=== PATIENT | female | born 1935 | race Caucasian/White ===

== ENCOUNTER 2021-03-29 11:44 | Inpatient (IN) | payer OTHER ==
[~2021-03-29] VITALS: Ht 167.6 cm; Wt 59.1 kg
--- NOTE | ~2021-03-29 | EMS ---
[address] [address] EMS Patient Care Report Name: STEFAN MONTAÑO Room #: 352-P ADM IN M.R.#: [id number] Admission: 03/29/21 Attend Phys: Cas Perez MD Discharge: Date of : 36 Report #: [id number] THIS REPORT FOR: //name// Report Transmitted: 03/30/2021 11:20 EMS Care Summary [place], [place]/[facility] Incident [id number] @ 03/29/2021 10:54 Incident Location [address] Patient STEFAN MONTAÑO Female, 85 Years 1935 Patient Address [address] [place] [address] Patient History Chronic Obstructive Pulmonary Disease (COPD),Dementia,Pneumonia, Patient Allergies No known allergies, Patient Medications Lisinopril, Chief Complaint PNEUMONIA Disposition Transported No Lights/[place] Dispatch Reason Sick Person Transported To [facility] Narrative EMS ARRIVED ON SCENE AT THE ADDRESS ABOVE. EMS MADE PT CONTACT, PT WAS SITTING UPRIGHT, GCS 12 IN HER ROOM AT [facility]. PT HAD BEEN RECENTLY BEEN DIAGNOSED WITH PNEUMONIA AND HAD BEEN ON ANTIBOTICS FOR THE PAST 6 DAYS. SNF STAFF STATED THAT [address] [address] EMS Patient Care Report Name: STEFAN MONTAÑO Room #: 352-P [facility] IN [place]#: [id number] Admission: 03/29/21 Attend Phys: Cas Perez MD Discharge: Date of : 36 Report #: [id number] PT IS USUALLY GCS 14 DUE TO DEMENTIA BUT HAS BEEN GCS 12 FOR APPROX. 24 HOURS. PT IS USUALLY ON HOME 02 DUE TO COPD. PT WAS LIFTED OFF COUCH AND PLACED ON STRETCHER AND SECURED WITH SEATBELTS. VITALS SIGNS WERE MONTIORED THROUGHOUT TRANSPORT WITH NO DECLINE IN MENTAL OR PHYSICAL STATUS. TRANSFER OF CARE WAS GIVEN TO RN AT [facility]. Initial Vitals @11:17P: 85,R: 18,BP: 121/84,Pain: 0/10,GCS: 12,SpO2: 94,Revised Trauma: 11, @11:11P: 81,R: 18,BP: 80/58,Pain: 0/10,GCS: 12,Glucose: 137,SpO2: 93,Revised Trauma: 10, @11:24P: 67,BP: 117/74,Pain: 0/10,GCS: 12,SpO2: 98, @11:31P: 74,R: 18,BP: 115/72,Pain: 0/10,GCS: 12,SpO2: 96,Revised Trauma: 11, Assessments @11:06MENTAL:Confused,SKIN:HEENT:Head/Face: No Abnormalities,Neck/Airway: No Abnormalities,LUNG SOUNDS:General: No Abnormalities,ABDOMEN:General: No Abnormalities,PELVIS//GI:No Abnormalities,EXTREMITIES:Left Arm: No Abnormalities,Right Arm: No Abnormalities,Left Leg: No Abnormalities,Right Leg: No Abnormalities,PULSE:NEURO:No Abnormalities, Impression Altered Mental Status Procedures @11:06 ALS Assessment Response: UnchangedSucceeded @11:15 Oxygen FlowRate: 4 Device: Nasal Cannula (NC) Response: UnchangedSucceeded @11:29 IV Therapy - Normal Saline (.9% NaCl) 10cc (20 ga) Site: Forearm-Left Response: UnchangedSucceeded Timeline 10:53,Call Received 10:53,Dispatch Notified 10:54,Dispatched 10:55,En Route 11:03,On Scene 11:06,At Patient 11:06,ALS Assessment,Response: UnchangedSucceeded, 11:11,BP: 80/58 M,PULSE: 81,RR: 18 R,SPO2: 93 Ox,ETCO2: ,B,PAIN: 0,GCS: 12, 11:15,Oxygen FlowRate: 4 Device: Nasal Cannula (NC) Response: UnchangedSucceeded, 11:17,BP: 121/84 M,PULSE: 85,RR: 18 R,SPO2: 94 Ox,ETCO2: ,BG: ,PAIN: 0,GCS: 12, 11:24,BP: 117/74 M,PULSE: 67,RR: R,SPO2: 98 Ox,ETCO2: ,BG: ,PAIN: 0,GCS: 12, 11:25,Depart Scene [address] [address] EMS Patient Care Report Name: STEFAN MONTAÑO Room #: 352-P [facility] IN M.R.#: [id number] Admission: 03/29/21 Attend Phys: Cas Perez MD Discharge: Date of : 36 Report #: [id number] 11:29,IV Therapy - Normal Saline (.9% NaCl) 10cc 20 ga Site: Forearm-Left,Response: UnchangedSucceeded, 11:31,BP: 115/72 M,PULSE: 74,RR: 18 R,SPO2: 96 Ox,ETCO2: ,BG: ,PAIN: 0,GCS: 12, 11:38,At Destination 11:58,Call Closed Disclaimer v1.1 Copyright 2020 [employer] This EMS Care Summary contains data elements from the applicable legal record (which may be displayed differently). It is designed to provide pertinent information for the following purposes: continuity of care, clinical quality, and state data reporting. The complete legal record is available to ED staff and administrators of the receiving hospital in [employer] Patient Tracker. All data is provided "as is."
[2021-03-29 11:44] VITALS: BP 104/50
[~2021-03-29 11:44] MED LIST: ACETAMINOPHEN325 M1 PO; ASPIRIN EC81 M1 PO; CARVEDILOL25 MG PO; CEFTIN 250 MG250 MG PO; CEPHALEXIN500 MG PO; COUMADIN 5 MG TA5 M1 PO; IPRAT-ALBUT 0.5-3 ML NEB; LASIX 20 MG TAB20 MG PO; LEVOFLOXACIN500 MG PO; LIPITOR10 MG PO; LISINOPRIL10 MG PO; ONDANSETRON ODT4 MG PO; PREDNISOLONE ACE5 ML LT. EYE; PROBIOTIC1 EAC7 PO
[2021-03-29 12:20] LABS: HEMOGLOBIN 11.4 gm/dL (12.0-15.0)
[2021-03-29 12:26] LABS: ABSOLUTE NEUTROPHILS 6.1 thou/uL (1.4-8.2); BASOPHILS 0.5 % (0.0-2.0); EOSINOPHILS 1.6 % (0.0-3.0); HEMATOCRIT 37.1 % (37.0-47.0); LYMPHOCYTES 12.9 % (24.0-44.0); MCH 29.2 pg (26.0-34.0); MCHC 30.8 g/dL (28.0-37.0); MCV 94.8 fL (80.0-100.0); PLATELET COUNT 138 thou/uL (150-400); RBC 3.92 mil/uL (4.20-5.00); RDW 15.8 % (10.5-14.5); WBC 7.8 thou/uL (4.0-11.0)
[2021-03-29 12:38] LABS: APTT 33.3 Seconds (24.5-32.8); D-DIMER 0.51 ug/mLFEU (0.19-0.50); INR 1.09; PROTIME 11.8 Seconds (10.5-12.1)
[2021-03-29 12:39] LABS: CALCIUM 9.3 mg/dL (8.5-10.1); CREATININE 3.3 mg/dL (0.6-1.0)
[2021-03-29 12:50] LABS: ALBUMIN 3.3 g/dL (3.4-5.0); TOTAL BILIRUBIN 0.4 mg/dL (0.2-1.0); TOTAL PROTEIN 6.3 g/dL (6.4-8.2)
[2021-03-29 12:56] LABS: BE(vivo) 1.7 mmol/L (-2 to +3); PO2 287.5 mmHg (80.0-100.0); sO2 99.5 % (92.0-98.0)
[2021-03-29 12:58] LABS: PCO2 85.2 mmHg (35.0-45.0); pH 7.192 (7.360-7.450)
[2021-03-29 13:17] LABS: URINE BILIRUBIN NEGATIVE (Negative); URINE BLOOD NEGATIVE (Negative); URINE CLARITY CLEAR; URINE COLOR YELLOW; URINE GLUCOSE-RANDOM* NEGATIVE (Negative); URINE KETONES NEGATIVE (Negative); URINE LEUKOCYTES-REFLEX NEGATIVE (Negative); URINE NITRITE-REFLEX NEGATIVE (Negative); URINE PROTEIN (DIPSTICK) NEGATIVE (Negative); URINE SPECIFIC GRAVITY 1.025 (1.005-1.035); URINE UROBILINOGEN 0.2 E.U./dl (0.2-1.0)
--- NOTE | 2021-03-29 14:06 | NUR ---
MARY CEE [phone] POA CALLED, MADE AWARE OF PT'S ARRIVAL TO ED AND POC.
[2021-03-29 14:33] LABS: HCO3 30.5 mmol/L (22.0-26.0); PO2 95.5 mmHg (80.0-100.0); sO2 95.5 % (92.0-98.0)
[2021-03-29 14:34] LABS: PCO2 77.5 mmHg (35.0-45.0); pH 7.213 (7.360-7.450)
[2021-03-29 16:38] VITALS: BP 140/78
[2021-03-29 16:48] VITALS: BP 140/78
[2021-03-29] MEDS ORDERED: ELIQUIS2.5 MG PO (16:48)
[2021-03-29] MEDS ORDERED: COSOPT OCUMETER10 M1 OPHTHALMIC (16:48)
[2021-03-29] MEDS ORDERED: LUMIGAN2.5 M1 OPHTHALMIC (16:49)
[2021-03-29] MEDS ORDERED: HYDRALAZINE 2525 M1 PO (16:49)
[2021-03-29] MEDS ORDERED: ATORVASTATIN CA20 MG PO (16:49)
[2021-03-29] MEDS ORDERED: ALLOPURINOL 10100 M1 PO (16:49)
[2021-03-29] MEDS ORDERED: FUROSEMIDE 20 M20 M1 PO (16:49)
[2021-03-29] MEDS ORDERED: PRINIVIL20 MG PO (16:49)
[2021-03-29] MEDS ORDERED: METOPROLOL TART25 MG PO (16:49)
[2021-03-29 17:00] VITALS: BP 138/113
--- NOTE | 2021-03-29 18:17 | NUR ---
ADMISSION NOTE: PT ADMITTED IN ROOM 352. ALERT TO SELF ONLY. PT IS PLEASANTLY CONFUSED AND FOLLOWS COMMANDS. ON BIPAP 40%, PER PT DTR PT WEAR 1L OF OXYGEN AT FACILITY.JIG FILLER PLACED, A-FIB ON THE MONITOR. ASSESSMENT AND ADMISSION COMPLTED. PT SKIN INTACT. PT DAUGHTER CALLED AND UPDATED ABOUT CARE. FALL PRECAUTIONS IN PLACE.
[2021-03-29] MEDS ORDERED: SEROQUEL 25 MG25 MG PO (18:23)
[2021-03-29 19:18] VITALS: BP 147/46
[2021-03-29 23:30] VITALS: BP 125/54
[2021-03-30 03:59] VITALS: BP 137/47
--- NOTE | 2021-03-30 04:48 | NUR ---
PT STAYED ON BIPAP ALL EVENING, WHILE VERY RESTLESS AND MINIMUAL SLEEP. PT'S SCHEDULED PO OLANZIPINE NOT RESTARTED YET DUE TO PT BEING NPO. RECEIVED ONE TIME ORDER OF HALIDOL TO HELP PT RELAX AND POSSIBLY SLEEP. PT STILL NPO. HERNDON IN TO DD. VSS OVERNIGHT.
[2021-03-30 06:45] LABS: ABSOLUTE NEUTROPHILS 6.3 thou/uL (1.4-8.2); BASOPHILS 0.5 % (0.0-2.0); HEMATOCRIT 32.9 % (37.0-47.0); HEMOGLOBIN 10.3 gm/dL (12.0-15.0); LYMPHOCYTES 7.5 % (24.0-44.0); MCH 29.2 pg (26.0-34.0); MCHC 31.4 g/dL (28.0-37.0); MCV 93.1 fL (80.0-100.0); MONOCYTES 0.5 % (1.0-8.0); PLATELET COUNT 134 thou/uL (150-400); POLYS 91.5 % (36.0-66.0); RBC 3.54 mil/uL (4.20-5.00); RDW 15.5 % (10.5-14.5); WBC 6.9 thou/uL (4.0-11.0)
[2021-03-30 07:02] VITALS: BP 139/51
--- NOTE | 2021-03-30 07:03 | EKG ---
[address] [address] ELECTROCARDIOGRAM REPORT Name: STEFAN MONTAÑO Room #: 352-P ADM IN M.R.#: [id number] Admission: 03/29/21 Attend Phys: Cas Perez MD Discharge: Date of : 36 Report #: [id number] [facility] ED Test Date: 2021-03-29 Test Time: 11:52:41 Pat Name: STEFAN MONTAÑO Department: Room: [facility] Gender: F Feeder Associate: LUDY : 1935 Requested By: Nieves Merida Order Number: [id number] MD: Heraclio Moulton Measurements Intervals Neola Rate: 83 P: VT: QRS: -25 QRSD: 98 T: 39 QT: 422 QTc: 496 Interpretive Statements Atrial fibrillation Ventricular premature complex Borderline left axis deviation Artifact in lead(s) I,II,III,aVR,aVL,aVF Compared to ECG 10/13/2011 19:33:44 Ventricular premature complex(es) now present ST (T wave) deviation now present Myocardial infarct finding no longer present Electronically Signed On 03-30-2021 7:02:47 CDT by Heraclio Moulton [email or web address] <ELECTRONICALLY SIGNED> By: Heraclio Moulton MD, FACC 03/30/21 0702 1152 115 Heraclio Moulton MD, [facility] /EPI
[2021-03-30 07:19] LABS: CALCIUM 8.9 mg/dL (8.5-10.1); CREATININE 3.4 mg/dL (0.6-1.0); MAGNESIUM 2.3 mg/dL (1.8-2.4)
[2021-03-30 10:58] VITALS: BP 101/49
--- NOTE | 2021-03-30 11:54 | 2DMMODE ---
[facility] [place] [address] 2 D/M-MODE ECHOCARDIOGRAM Name: STEFAN MONTAÑO Room #: 352-P ADM IN M.R.#: [id number] Admission: 03/29/21 Attend Phys: Cas Perez MD Discharge: Date of : 36 Report #: [id number] THIS REPORT FOR: cc: Nadira Acevedo Kathryn C. DO Santiago, Patrick MD MERGED WITH [facility] ~ APPROVED REPORT Study performed: 03/30/2021 11:06:26 EXAM: Comprehensive 2D, Doppler, and color-flow Echocardiogram Patient Location: Bedside Room #: 352 Status: routine BSA: 1.70 HR: 80 bpm BP: 101/49 mmHg Rhythm: Atrial Fibrillation Other Information Study Quality: Good Indications COPD Pulmonary Hypertension Atrial Fibrillation Dyspnea Hypertension/HDD 2D Dimensions RVDd: 38.92 mm IVSd: 9.53 (7-11mm) LVOT Diam: 18.33 (18-24mm) LVDd: 37.49 mm PWd: 10.54 (7-11mm) Ascending Ao: 25.57 (22-36mm) LVDs: 24.28 (25-40mm) Left Atrium: 46.40 (27-40mm) Aortic Root: 29.37 mm IVC: 21.00 mm Volumes Left Atrial Volume (Systole) Single Plane 4CH: 62.45 mL Single Plane 2CH: 80.64 mL LA ESV Index: 47.00 mL/m2 Aortic Valve [facility] [address] [place] [address] 2 D/M-MODE ECHOCARDIOGRAM Name: STEFAN MONTAÑO Room #: 352-P [facility] IN ..#: [id number] Admission: 03/29/21 Attend Phys: Cas Perez MD Discharge: Date of : 36 Report #: [id number] AoV Peak Neri.: 1.60 m/s AO Peak Gr.: 10.24 mmHg LVOT Max P.64 mmHg LVOT Max V: 0.95 m/s MARCELA Vmax: 1.57 cm2 Pulmonary Valve PV Peak Neri.: 1.09 m/s PV Peak Gr.: 4.79 mmHg Tricuspid Valve TR Peak Neri.: 4.22 m/s TR Peak Gr.: 71.20 mmHg PA Pressure: 81.00 mmHg Left Ventricle The left ventricle is normal size. There is normal LV segmental wall motion. There is normal left ventricular wall thickness. The left ventricular systolic function is normal. The left ventricular ejection fraction is within the normal range. LVEF is 60-65%. This study is not technically sufficient to allow evaluation of the LV diastolic function due to atrial fibrillation. Right Ventricle Right ventricle is dilated. Right ventricle is hypokinetic. Atria Left atrium is dilated. Right atrium is dilated. Aortic Valve The aortic valve is normal in structure. The Aortic valve is sclerotic. No aortic regurgitation is present. There is no aortic valvular stenosis. Mitral Valve The mitral valve is normal in structure. Trace to mild mitral regurgitation. No evidence of mitral valve stenosis. Tricuspid Valve The tricuspid valve is normal in structure. There is moderate tricuspid regurgitation. Estimated PAP 81 mmHg. There is severe pulmonary hypertension. Pulmonic Valve The pulmonary valve is normal in structure. There is no pulmonic valvular regurgitation. [facility] [place] [address] 2 D/M-MODE ECHOCARDIOGRAM Name: STEFAN MONTAÑO Cherelle Room #: 352-P [facility] IN M.R.#: [id number] Admission: 03/29/21 Attend Phys: Cas Perez MD Discharge: Date of : 36 Report #: [id number] Great Vessels The aortic root is normal in size. IVC is dilated and collapses >50% with inspiration. Pericardium Smaall pericardial effusion. <Conclusion> Normal left ventricle size/wall thickness Ejection fraction 60% Right ventricle mildly dilated/hypokinetic Moderate biatrial enlargement Moderate mitral annular calcification Mild mitral valve insufficiency Normal aortic valve structure and function Moderate tricuspid valve insufficiency Severe pulmonary hypertension PA pressure systolic estimated 81 mmHg Small posterior pericardial effusion Normal aortic root size Atrial fibrillation during the study <ELECTRONICALLY SIGNED> By: Heraclio Moulton MD, [facility] 03/30/21 1154 1154 1154 Heraclio Moulton MD, FACC /INF
[2021-03-30 16:27] VITALS: BP 106/42
--- NOTE | 2021-03-30 16:36 | NUR ---
CARE ASSUMED THIS AM, PT ALERT TO PERSON, DISORINTED TO SITUATION, PLACE AND TIME. HX OF DEMENTIA. DENIES ANY PAIN. CURRENTLY ON 2L OF OXYGEN (PT BASELINE) SOB WITH EXERTION. HIGH FALL RISK. FALL PRECAUTIONS IN PLACE. PT DAUGHTER VISITING, UPDATED ABOUT CARE. WILL CONTINUE TO MONITOR
[2021-03-30 18:55] VITALS: BP 111/50
--- NOTE | 2021-03-31 03:41 | NUR ---
Slept well during the night. O2 at 2L/NC. Assisted to reposition for comfort. Daughter visited last night. Bed alarm on. Making some progress towards care plan goals.
[2021-03-31 04:40] VITALS: BP 93/74
[2021-03-31 06:30] LABS: CALCIUM 8.6 mg/dL (8.5-10.1); POTASSIUM 5.2 mmol/L (3.5-5.1)
[2021-03-31 08:04] VITALS: BP 103/34
[2021-03-31 09:09] LABS: BE(vivo) 2.5 mmol/L (-2 to +3); PCO2 79.3 mmHg (35.0-45.0); pH 7.224 (7.360-7.450); sO2 96.7 % (92.0-98.0)
[2021-03-31 10:36] LABS: BE(vivo) 2.8 mmol/L (-2 to +3); HCO3 30.4 mmol/L (22.0-26.0); PCO2 62.3 mmHg (35.0-45.0); PO2 68.9 mmHg (80.0-100.0); pH 7.306 (7.360-7.450); sO2 91.7 % (92.0-98.0)
[2021-03-31 11:22] VITALS: BP 105/51
--- NOTE | 2021-03-31 14:05 | NUR ---
INITIAL ASSESSMENT: Received consult. BOGDAN reviewed chart and spoke with nursing and attending physician. Pt was admitted from [facility] group home care unit due to respiratory failure. Pt is currently on 2L of O2/bipap support. Pt is on IV abx. Palliative care consulted to discuss goals of care. BOGDAN spoke with Jennifer at [facility]. Pt has been ambulatory at the facility and is able to return to the LTC unit over the weekend if pt is ready for discharge. [facility] does not provide skilled therapy and cannot administer IV abx. [facility] does provide their own hospice/palliative care services. Pt's dtr, Ariadna, is listed as DPOA. Palliative care RN currently meeting with pt and family. SW to follow up with pt/family to discuss plan of care.
[2021-03-31 15:36] VITALS: BP 116/57
--- NOTE | 2021-03-31 16:51 | NUR ---
Daughter Ashanti is the documented DPOA on the chart and notes after discussing with the patient's doctor and palliative care nurse practioners continuing BIPAP for 24 hours and does not wish to pursue intubation if required. Daughter and NON-DPOA Velma states that the Music Composer at [facility] is off today and they have "a piece of paper that says Mom wants to be resuscitated". Spoke with Christina the nurse and the patient DOES have a Revocation of her DNR signed on February in the [facility] - HOWEVER: This sister Velma is one of the witnesses on this form now stating she wants to be a FULL CODE. The DPOA Ashanti does NOT wish for full code. Discussion with and reviewed and note: that now as determined by the staff and attending Dr. Perez that the patient is now no longer showing capacity to make her own decisions; the DPOA is activated and therefore Ariadna the DPOA daughter is who is to make decisions for her mother. I called and spoke with NON-DPOA Velma and explained above. Was unhappy with decision but understands that her sister Ashanti the DPOA will be making her decisions at this time. Notified Security, Kiln Tester, patient's nurse Christina, and SW of above.
--- NOTE | 2021-03-31 17:49 | NUR ---
PT DAUGHTER MARY (DPOA) HAS LEFT FACILITY FOR EVENING. PT DAMIEN EDWAR IS IN WITH PT. EDWAR STATES SHE "IS DESPERATE FOR ANYONE TO LISTEN" AND THAT HER MOM WANTS TO LIVE. THIS RN EXPLAINED THE DPOA DECISION DESCRIBED IN PREVIOUS NOTE, OFFERED PT DAUGHTER SPIRITUAL CARE CONSULT. PT DAUGHTER EDWAR DECLINED SPIRITUAL CARE CONSULT.
[2021-03-31 19:19] VITALS: BP 126/61
[2021-04-01 04:23] VITALS: BP 120/60
[2021-04-01 06:52] VITALS: BP 127/53
--- NOTE | 2021-04-01 07:47 | NUR ---
Daughter Velma stayed with pt. till HS. Pt. has been calm and cooperative. On BIPAP at 30% FIO2 and has kept it all night. She slept well during the night. Repositioned for comfort.
[2021-04-01 11:24] VITALS: BP 113/52
[2021-04-01 15:03] VITALS: BP 111/60
--- NOTE | 2021-04-01 17:49 | NUR ---
PT WAS PLACED BACK ON 2L OF OXYGEN THIS AM, O2 SAT HAS BEEN IN THE HIGH 90'S WITH NO DISTRESS. ALERT TO PERSON. PLEASANT AND DENIES ANY PAIN, NAUSEA AND VOMITTING. UO WITH OT TO THE CHAIR. MOD ASSIST TO COMMODE. HERNDON CONTINUE TO BE IN PLACE, PATENT AND SECURED. PT CHILDREN HAVING BEEN VISIT, ONE AT TIMES AND UPDATED ABOUT PT CARE. FALL PRECAUTIONS IN PLACE. DENIES ANY NEEDS YAMILETH, WILL CONTINUE TO MONITOR
[2021-04-01 20:16] VITALS: BP 135/55
[2021-04-02 00:15] VITALS: BP 107/57
[2021-04-02 05:21] VITALS: BP 108/52
--- NOTE | 2021-04-02 06:34 | NUR ---
ASSUMED CARE OF PT AT 1900. PT IS 85 Y.O. PLEASANTLY CONFUSED FEMALE WITH INFECTION AND RESPIRATORY ISSUES WITH AMS. THROUGHOUT THE NIGHT PT RESTED QUIETLY WITH NO COMPLAINTS, VSS. HAD BREATHING TREATMENTS WITH RESPIRATORY, BUT OTHERWISE WAS NOT DYSPNEIC THROUGHOUT SHIFT, ON 2L PER NC. LOCALIZES TO VERBAL CUES, APPROPRIATE RESPONSES, HERNDON INTACT AND PATENT, TOOK MEDS CRUSHED IN APPLESAUCE, RAN AFIB RC ON THE MONITOR, AND VOCALIZES NO PAIN OR NAUSEA. RESTING IN ROOM NOW, WILL CONT TO MONITOR.
[2021-04-02 11:46] VITALS: BP 134/61
--- NOTE | 2021-04-02 17:57 | NUR ---
assumed care of pt at 0700. no acute distress. very pleasant. 2L NC oxygen. small appetite. incontinent of stool. vitals stable. abx infusing per order. socializing with family at bedside throughout day. wcm.
[2021-04-03 04:16] VITALS: BP 127/62
--- NOTE | 2021-04-03 06:34 | NUR ---
PROGRESS PT A/O X 3, ABLE TO MAKE NEEDS KNOWN. TOLERATING THICKENED LIQUIDS TAKING IN ADEQUATE AMOUNTS. FOOD INTAKE IS STILL INADEQUATE BUT SLOWLY IMPROVING. FAMILY AT BEDSIDE AND VERY HELPFUL. IV INTACT USING FOR INTERMITTENT ANTIBIOTICS. HERNDON IN PLACE DRAINING A LARGE AMOUNT OF CLEAR YELLOW URINE. NO BM THIS SHIFT. REPOSITIONED NEEDED. TELEMETRY INTACT READING SA WITH RATES IN THE 60'S TO 80'S.
[2021-04-03 07:26] VITALS: BP 134/62
[2021-04-03 10:33] LABS: HEMATOCRIT 35.7 % (37.0-47.0); HEMOGLOBIN 10.9 gm/dL (12.0-15.0); MCH 28.6 pg (26.0-34.0); MCHC 30.5 g/dL (28.0-37.0); MCV 93.6 fL (80.0-100.0); RBC 3.81 mil/uL (4.20-5.00); RDW 15.8 % (10.5-14.5); WBC 9.4 thou/uL (4.0-11.0)
[2021-04-03] MEDS ORDERED: PULMICORT0.5 MG/21 INH (10:47)
[2021-04-03] MEDS ORDERED: AUGMENTIN 500-1 EACH PO (10:47)
[2021-04-03] MEDS ORDERED: LASIX 40 MG TAB40 MG PO (10:47)
[2021-04-03 10:51] LABS: CALCIUM 8.8 mg/dL (8.5-10.1); POTASSIUM 3.8 mmol/L (3.5-5.1)
--- NOTE | 2021-04-03 14:24 | NUR ---
BOGDAN reviewed chart and spoke with nursing and attending physician. Pt is on 2L of O2 via NC. Consult received to discuss hospice evaluation with pt's family. BOGDAN met with pt and dtr/DPOAAshanti, at bedside. Per Ashanti, plan is for pt to return to [facility] and initiate hospice at the facility. BOGDAN explained process for discharge. BOGDAN faxed updated clinical info to [facility] and spoke with HANNAH Gastelum at the facility. Pt will be moved to the 3rd floor and they will not have the room ready until tomorrow. Oriana states that they use [facility] and they will notify hospice today. BOGDAN updated pt's dtrAshanti, via phone to provide update. Ashanti is aware and in agreement with plan. Ashanti is agreeable with pt having [facility]. BOGDAN updated pt's nurse and attending physician. BOGDAN is following to assist as needed with discharge planning.
[2021-04-03 15:45] VITALS: BP 131/55
--- NOTE | 2021-04-03 18:35 | NUR ---
ASSUMED PATIENT CARE AT 0700. A/0 X4. TOLERATED ON 2L/NC. LOOSE STOOL TWO TIMES. DENIES PAIN. PROGRESSING TOWARDS POC GOALS.
[2021-04-03 19:50] VITALS: BP 146/56
[2021-04-04 04:03] VITALS: BP 136/69
--- NOTE | 2021-04-04 06:01 | NUR ---
Pt. slept fair during the night. Repositioned prn for comfort. Maintaining O2 sat in the upper 90's on 2L/NC.Right FA IV infiltrated. New IV placed on left FA. Frequent reorientation given as she is very forgetful , plesantly confused. Bed alarm on. Asking when breakfast would be this am. Making some progress towards care plan goals.
[2021-04-04 07:16] VITALS: BP 131/44
[2021-04-04 08:00] VITALS: BP 131/44
--- NOTE | 2021-04-04 13:37 | NUR ---
DISCHARGE NOTE: BOGDAN reviewed chart and spoke with nursing and attending physician. Pt is medically stable to discharge back to [facility] today with hospice. SW received call from Hanh at [facility], who states they received referral from [facility]. copier and printer field technician met with pt's two dtrs at the hospital this morning. Pt was evaluated and is appropriate for hospice. Pt's dtr/DPOA, Ashanti, signed consents for pt to be admitted on hospice. BOGDAN spoke with BOGDAN Elise at [facility], who confirmed they are able to accept pt back today with hospice. BOGDAN arranged ambulance transportation for 1530. BOGDAN updated attending physician, who has spoken with both dtrs today. BOGDAN faxed d/c ppwk to [facility] and confirmed info was received. BOGDAN faxed hospice referral and d/c ppwk to [facility]. Spoke with Hanh to confirm info was received. Hospice to meet pt at the facility later today. BOGDAN updated [facility]OP, pt's dtr (Ashanti) and pt's nurse. Number provided for report. Chart copy requested. Pt's dtr, Velma, is at the bedside. No additional SW needs identified at this time. SW is available to assist should needs arise.
--- NOTE | 2021-04-04 15:24 | NUR ---
Patient is alert and oriented to person. Patient has even unlabored respiratons. Patient is on 2L of oxygen at this time. Patients IV was D/C'd at approximately 1430. Patient is scheduled for transport from hospital back to [facility] at 1530. Report was called to [place] at [facility] at 1448. All belongings are packed and with patient at this time.
--- NOTE | 2021-04-04 17:09 | NUR ---
Patient transferred from hospital back to [facility]. Report on patient already called to facility. All of patients belongings left with paitent and patients daughter. Patient transferred to facility by EMS. Patients daughter plans to follow patient to facility behind EMS.
== END 2021-04-04 17:00 | disposition hospice, home (50) | DRG 193 ==
LOC: ER 11:44 → EROBS 16:56 → 3W 16:56
PROVIDERS: Hospitalist; Nurse Practitioner; Nurse Practitioner Family; ADMIT Hospitalist; ATTEND Hospitalist
PROC: 5A09357 Assistance with Respiratory Ventilation, Less than 24 Consecutive Hours, Continuous Positive Airway Pressure (ICD-10-PCS; principal; 2021-03-29)
PROC: 5A09357 Assistance with Respiratory Ventilation, Less than 24 Consecutive Hours, Continuous Positive Airway Pressure (ICD-10-PCS; 2021-03-30)
PROC: 5A09357 Assistance with Respiratory Ventilation, Less than 24 Consecutive Hours, Continuous Positive Airway Pressure (ICD-10-PCS; 2021-03-31)
PROC: 5A09357 Assistance with Respiratory Ventilation, Less than 24 Consecutive Hours, Continuous Positive Airway Pressure (ICD-10-PCS; 2021-04-01)
DX: J18.9 Pneumonia, unspecified organism (principal); J96.21 Acute and chronic respiratory failure with hypoxia; I21.4 Non-ST elevation (NSTEMI) myocardial infarction; J96.22 Acute and chronic respiratory failure with hypercapnia; N17.9 Acute kidney failure, unspecified; E87.2 Acidosis; J44.1 Chronic obstructive pulmonary disease with (acute) exacerbation; E87.1 Hypo-osmolality and hyponatremia; I13.0 Hypertensive heart and chronic kidney disease with heart failure and stage 1 through stage 4 chronic kidney disease, or unspecified chronic kidney disease; J44.0 Chronic obstructive pulmonary disease with (acute) lower respiratory infection; I50.9 Heart failure, unspecified; I48.91 Unspecified atrial fibrillation; Z20.822 Contact with and (suspected) exposure to COVID-19; D69.6 Thrombocytopenia, unspecified; M10.9 Gout, unspecified; F03.90 Unspecified dementia, unspecified severity, without behavioral disturbance, psychotic disturbance, mood disturbance, and anxiety; N18.9 Chronic kidney disease, unspecified; Z66 Do not resuscitate; I27.20 Pulmonary hypertension, unspecified; Z79.01 Long term (current) use of anticoagulants; Z86.73 Personal history of transient ischemic attack (TIA), and cerebral infarction without residual deficits; Z88.2 Allergy status to sulfonamides; Z88.8 Allergy status to other drugs, medicaments and biological substances; Z91.041 Radiographic dye allergy status
CPT/HCPCS: 10879